=== PATIENT | female | born 1960 ===

== ENCOUNTER 2017-07-20 09:04 | Outpatient (CLI) | payer OTHER ==
[~2017-07-20] VITALS: Ht 162.6 cm; Wt 68.0 kg
== END 2017-07-20 09:20 | disposition home or self-care (01) ==
LOC: OFIC 805 09:04
DX: D10.39 Benign neoplasm of other parts of mouth (principal)

== ENCOUNTER 2017-09-08 13:00 | Outpatient (CLI) | payer OTHER ==
[~2017-09-08] VITALS: Ht 152.4 cm; Wt 68.0 kg
== END 2017-09-08 13:15 | disposition home or self-care (01) ==
LOC: OFIC 805 13:00
DX: D11.0 Benign neoplasm of parotid gland (principal)

== ENCOUNTER 2017-10-06 14:22 | Outpatient (CLI) | payer OTHER ==
[~2017-10-06] VITALS: Ht 152.4 cm; Wt 68.0 kg
== END 2017-10-06 14:45 | disposition home or self-care (01) ==
LOC: OFIC 805 14:22
DX: D11.0 Benign neoplasm of parotid gland (principal)

== ENCOUNTER 2017-11-03 07:00 | Day surgery (SDC) | payer OTHER ==
[~2017-11-03] VITALS: Ht 162.6 cm; Wt 69.4 kg
[~2017-11-03 07:00] MED LIST: AMBIEN10 MG PO; CLONAZEPAM0.5 MG PO; GABAPENTIN600 MG PO; NAPROXEN500 MG PO; SOMA250 MG PO; WELLBUTRIN SR150 MG PO; ZOCOR5 MG PO
== END 2017-11-04 08:00 | disposition home or self-care (01) ==
LOC: SURG 07:00 → EDSTATUS 07:00 → CIR.AMB 07:00 → O/R 16:57 → SURG 16:57 → CIR.AMB 11-04 08:00 → SURG 11-04 09:25
DX: D11.0 Benign neoplasm of parotid gland (principal)

== ENCOUNTER 2017-11-06 10:44 | Outpatient (CLI) | payer OTHER ==
[~2017-11-06] VITALS: Ht 152.4 cm; Wt 68.0 kg
== END 2017-11-06 11:00 | disposition home or self-care (01) ==
LOC: OFIC 805 10:44
DX: D11.0 Benign neoplasm of parotid gland (principal)

== ENCOUNTER 2017-11-09 11:26 | Outpatient (CLI) | payer OTHER ==
[~2017-11-09] VITALS: Ht 152.4 cm; Wt 68.0 kg
== END 2017-11-09 11:40 | disposition home or self-care (01) ==
LOC: OFIC 805 11:26
DX: D11.0 Benign neoplasm of parotid gland (principal)

== ENCOUNTER 2017-12-15 14:11 | Outpatient (CLI) | payer OTHER | END 2017-12-15 14:25 | disposition home or self-care (01) | LOC: OFIC 805 14:11 | DX: D11.7 Benign neoplasm of other major salivary glands (principal) ==